=== PATIENT | female | born 1990 | race American Indian/Alaskan Native ===

== ENCOUNTER 2016-12-05 21:15 | Emergency (ER) | payer MEDICAID, OTHER ==
[2016-12-05 21:15] VITALS: BMI 34.3
[2016-12-05 21:23] VITALS: BP 106/52; PULSE 92; RESP 18; TEMP 98.9; O2SAT 100
--- NOTE | 2016-12-05 21:48 | ED PDOC ---
HPI: General Adult Time Seen by Provider: 12/05/16 21:25 Chief Complaint (Nursing): GI Problem Chief Complaint (Provider): nausea, lightheaded, headache History Per: Patient Additional Complaint(s): 26 year old female with no past medical history presents to emergency department with lightheadedness and headache that started while she was at work earlier today. 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 Patient went home and took Advil this afternoon due to lower back pain. Patient became nauseous after this and still has headache so she came to ED. She states lightheadness has since resolved. Patient rates current headache as a 5 out of 10. She states that she gets headaches from time to time and states this is not the worst headache of her life. She has mild nausea but has not vomited. She states since nausea began several hours ago she has been able to tolerate juice and candy without further emesis. She denies fever or chills, denies any chest pain, shortness of breath or dyspnea on exertion, no dizziness or vision changes. Past Medical History Reviewed: Historical Data, Nursing Documentation, Vital Signs Vital Signs: Last Vital Signs Temp 98.9 F 12/05/16 21:19 Pulse 92 H 12/05/16 21:19 Resp 18 12/05/16 21:19 BP 106/52 L 12/05/16 21:19 Pulse Ox 100 12/05/16 22:09 - Medical History Other PMH: PCOS - Surgical History Surgical History: No Surg Hx - Family History Family History: States: No Known Family Hx - Living Arrangements Living Arrangements: With Family - Social History Current smoker - smoking cessation education provided: Yes Alcohol: None Drugs: Denies - Home Medications Home Medications: Ambulatory Orders Medication Instructions Recorded No Known Home Med 03/06/16 - Allergies Allergies/Adverse Reactions: Allergies Allergy/AdvReac Type Severity Reaction Status Date / Time No Known Allergies Allergy Verified 03/06/16 19:15 Review of Systems ROS Statement: Except As Marked, All Systems Reviewed And Found Negative Constitutional: Negative for: Fever, Chills, Weakness Cardiovascular: Positive for: Light Headedness. Negative for: Chest Pain Respiratory: Negative for: Cough Gastrointestinal: Positive for: Nausea. Negative for: Vomiting, Abdominal Pain , Diarrhea Neurological: Positive for: Headache. Negative for: Weakness, Numbness, Incoordination, Change in Speech, Confusion, Seizures, Altered Mental Status, Dizziness Physical Exam - Reviewed Nursing Documentation Reviewed: Yes Vital Signs Reviewed: Yes - Physical Exam Appears: Positive for: Well, Non-toxic, No Acute Distress Head Exam: Positive for: ATRAUMATIC, NORMAL INSPECTION Skin: Negative for: Rash Eye Exam: Positive for: Normal appearance Cardiovascular/Chest: Positive for: Regular Rate, Rhythm Respiratory: Positive for: Normal Breath Sounds Gastrointestinal/Abdominal: Positive for: Soft. Negative for: Tenderness, Distended, Guarding Extremity: Positive for: Normal ROM. Negative for: Pedal Edema Neurologic/Psych: Positive for: Alert, institute scientist II-XII (Grossly intact), Oriented, Gait (Steady). Negative for: Motor/Sensory Deficits, Aphasia, Facial Droop - Laboratory Results Result Diagrams: 12/05/16 22:46 12/05/16 22:46 Urine POC: Negative Urine dip results: Negative for: Leukocyte Esterase, Blood, Nitrate, Ketones, Glucose, Bilirubin, Protein - ECG Interpretation Of ECG: NSR 90 bpm, no acute finding, reviewed by PA and ED attending O2 Sat by Pulse Oximetry: 100 Pulse Ox Interpretation: Normal Medical Decision Making Medical Decision Makin26 year old with nausea and headache Plan: EKG CBC MP Trop Urine test Urine dip IV fluids IV zofran PO tylenol IV toradol Patient is aware of all diagnostic testing results, all questions answered. She states headache, nausea and lightheadness have resolved. Patient was instructed to drink plenty of fluids and take NSAIDs as needed for headache pain. She was advised to follow-up with her primary doctor or with clinic in 2- 3 days. Disposition - Clinical Impression Clinical Impression: Headache, Nausea - Patient ED Disposition Is Patient to be Admitted: No Counseled Patient/Family Regarding: Studies Performed, Diagnosis, Need For Followup - Disposition Referrals: [facility] [Outside] Disposition: Routine/Home Disposition Time: 23:54 Condition: STABLE Additional Instructions: Motrin or Tylenol for pain as needed. Drink plenty of fluids. Follow-up with primary doctor or clinic in 2-3 days. Instructions: General Headache (ED) Forms: [employer] (Romansh) Results - Lab Results Lab Results: 12/05/16 12/05/16 22:46 22:46 WBC 8.2 RBC 4.17 Hgb 11.6 L Hct 36.0 MCV 86.3 MCH 27.8 MCHC 32.2 L RDW 12.7 Plt Count 285 MPV 7.4 Neut % (Auto) 60.5 Lymph % (Auto) 28.6 Cotton % (Auto) 6.6 Eos % (Auto) 3.3 Baso % (Auto) 1.0 Neut # 4.9 Lymph # 2.3 Cotton # 0.5 Eos # 0.3 Baso # 0.1 Sodium 139 Potassium 3.5 L Chloride 107 Carbon Dioxide 19 L Anion Gap 17 BUN 16 Creatinine 0.5 L Est GFR ( Amer) > 60 Est GFR (Non-Af Amer) > 60 Random Glucose 115 H Calcium 9.4 Total Bilirubin 0.3 AST 19 ALT 22 Alkaline Phosphatase 63 Troponin I < 0.0120 Total Protein 7.5 Albumin 4.3 Globulin 3.3 Albumin/Globulin Ratio 1.3
[2016-12-05] MEDS ORDERED: Sodium Chloride 0.9% 1,000 ML IV STA (21:51)
[2016-12-05 22:49] LABS: BASO # 0.1 K/uL (0.0-0.2); EOS # 0.3 K/uL (0.0-0.7); EOS % 3.3 % (0.0-4.0); LYMPH # 2.3 K/uL (1.0-4.3); LYMPH % 28.6 % (20.0-40.0); MEAN CELL VOLUME 86.3 fl (81.0-99.0); MEAN CORPUSCULAR HEMOGLOBIN 27.8 pg (27.0-31.0); MEAN CORPUSCULAR HGB CONC 32.2 g/dL (33.0-37.0); MEAN PLATELET VOLUME 7.4 fl (7.2-11.7); MONO # 0.5 K/uL (0.0-0.8); MONO % 6.6 % (0.0-10.0); NEUT # 4.9 K/uL (1.8-7.0); NEUT % 60.5 % (50.0-75.0); NRBC % 0.1 % (0.0-0.0); RED CELL DISTRIBUTION WIDTH 12.7 % (11.5-14.5); WHITE BLOOD COUNT 8.2 K/uL (4.8-10.8)
[2016-12-05 22:57] LABS: ALB/GLOB RATIO 1.3 (1.0-2.1); ALKALINE PHOSPHATASE 63 U/L (38-126); ALT/SGPT 22 U/L (9-52); AST/SGOT 19 U/L (14-36); BILIRUBIN,TOTAL 0.3 mg/dl (0.2-1.3); BLOOD UREA NITROGEN 16 mg/dl (7-17); CALCIUM 9.4 mg/dL (8.4-10.2); CARBON DIOXIDE 19 mmol/L (22-30); CHLORIDE 107 mmol/L (98-107); GFR AFRICAN-AMERICAN > 60; GLUCOSE,RANDOM 115 mg/dL (65-105); POTASSIUM 3.5 MMOL/L (3.6-5.0); SODIUM 139 mmol/l (132-148); TOTAL PROTEIN 7.5 G/DL (6.3-8.2)
--- NOTE | 2016-12-06 09:24 | CARD ---
APPROVED REPORT EKG Measurement Heart [id number] 150P26 [id number] <Conclusion> Normal sinus rhythm Normal ECG
== END 2016-12-06 00:01 | disposition home or self-care (01) ==
LOC: H.ER 21:15
DX: R51 Headache (principal); R11.0 Nausea; E28.2 Polycystic ovarian syndrome
CPT/HCPCS: 80053; 81025; 84484; 85025; 93005; 99281; J1885; J2405; J7040

== ENCOUNTER 2018-01-26 15:15 | Emergency (ER) | payer MEDICAID, OTHER ==
[2018-01-26 15:15] VITALS: BMI 34.3
--- NOTE | 2018-01-26 16:11 | ED PDOC ---
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 Patient states pain is worse when lifting arm away from body. She reports that stretched her arm a bit yesterday and that it felt better but pain got worse over night, prompting her to come to the ED. Patient states that she also experiences intermittent chest pain and back pain for x6 months. She reports that the chest pain is at night and can be described as sometimes sharp and stabbing. Patient has reported to have not seen a doctor about this and she denies numbness or weakness. PMD: Rene Chan Past Medical History Reviewed: Historical Data, Nursing Documentation, Vital Signs Vital Signs: Last Vital Signs Temp 98.5 F 01/26/18 15:21 Pulse 93 H 01/26/18 15:21 Resp 18 01/26/18 15:21 BP 118/76 01/26/18 15:21 Pulse Ox 99 01/26/18 15:21 - Medical History PMH: HTN Denies: Chronic Kidney Disease - Surgical History Surgical History: No Surg Hx - Family History Family History: States: Hypertension - Social History Current smoker - smoking cessation education provided: Yes Alcohol: Occasional - Home Medications Home Medications: Ambulatory Orders Medication Instructions Recorded Ibuprofen [Motrin Tab] 600 mg PO Q8 PRN #60 tab 01/26/18 Omeprazole Magnesium [Prilosec Otc] 20 mg PO DAILY #30 tcp 01/26/18 - Allergies Allergies/Adverse Reactions: Allergies Allergy/AdvReac Type Severity Reaction Status Date / Time No Known Allergies Allergy Verified 01/26/18 15:21 Review of Systems ROS Statement: Except As Marked, All Systems Reviewed And Found Negative Cardiovascular: Positive for: Chest Pain Musculoskeletal: Positive for: Shoulder Pain (left ), Arm Pain (left elbow pain), Back Pain Physical Exam - Reviewed Nursing Documentation Reviewed: Yes Vital Signs Reviewed: Yes - Physical Exam Appears: Positive for: In Acute Distress (mild painful distress) Head Exam: Positive for: ATRAUMATIC, NORMOCEPHALIC Skin: Positive for: Warm, Dry Eye Exam: Positive for: EOMI, PERRL Neck: Positive for: Painless ROM, Supple Cardiovascular/Chest: Positive for: Regular Rate, Rhythm, Chest Non Tender (no TTP on chest ). Negative for: Murmur Respiratory: Positive for: Normal Breath Sounds (clear to auscultation). Nega tive for: Wheezing, Respiratory Distress Back: Positive for: Normal Inspection. Negative for: Vertebral Tenderness Extremity: Positive for: Tenderness (TTP at the lateral elbow; left shoulder non tender ), Other ( able to flex and extend elbow: 5/5 strength; pain elicited shoulder abduction). Negative for: Deformity, Swelling Lymphatic: Negative for: Adenopathy Neurologic/Psych: Positive for: Alert, Oriented (x3). Negative for: Motor/Sensory Deficits - ECG ECG Rhythm: Positive for: Normal QRS, Normal ST Segment, Sinus Rhythm (normal ) Rate: 90 O2 Sat by Pulse Oximetry: 99 (RA) Pulse Ox Interpretation: Normal Medical Decision Making Medical Decision Making: Initial Time: 15:46 Initial plan: --EKG --Drug screen --ED urine --ED urine dipstick --Chest X-ray --Left elbow x-ray Time: 17:25 Chest X-ray show no acute findings. Elbow X-ray shows no fracture or dislocation. Patient is stable for discharge Scribe Attestation: Documented by Nitin Martinez, acting as a scribe for Loree Vale MD Provider Scribe Attestation: All medical record entries made by the Scribe were at my direction and personally dictated by me. I have reviewed the chart and agree that the record accurately reflects my personal performance of the history, physical exam, medical decision making, and the department course for this patient. I have also personally directed, reviewed, and agree with the discharge instructions and disposition. Disposition - Clinical Impression Clinical Impression: Lateral epicondylitis (tennis elbow), Chest pain Counseled Patient/Family Regarding: Studies Performed, Diagnosis, Need For Followup, Rx Given - Disposition Referrals: Rene Chan MD [Staff Provider] - (FOLLOW UP WITH DR CHAN BY WEDNESDAY FOR REEVALUATION) Disposition: Routine/Home Disposition Time: 17:00 Condition: STABLE Prescriptions: Ibuprofen [Motrin Tab] 600 mg PO Q8 PRN #60 tab PRN Reason: Pain, Moderate (4-7) Omeprazole Magnesium [Prilosec Otc] 20 mg PO DAILY #30 tcp Instructions: Chest Pain That Is Not Caused by the Heart (DC), Lateral Epicondylitis (DC) Forms: [facility] ED School/Work Excuse
--- NOTE | 2018-01-26 17:33 | RAD ---
HISTORY: chest pain COMPARISON: Images from chest x-ray performed 03/16/11 TECHNIQUE: Chest PA and lateral FINDINGS: Examination limited by habitus. LUNGS: No focal consolidation. Please note that chest x-ray has limited sensitivity for the detection of pulmonary masses. PLEURA: No significant pleural effusion identified. No definite pneumothorax . CARDIOVASCULAR: Heart size appears within normal limits. No atherosclerotic calcification present. OSSEOUS STRUCTURES: No acute osseous abnormality identified. VISUALIZED UPPER ABDOMEN: Unremarkable. OTHER FINDINGS: None. IMPRESSION: No focal consolidation, significant pleural effusion, or definite pneumothorax identified.
--- NOTE | 2018-01-26 17:35 | RAD ---
PROCEDURE: Radiographs of the left elbow. HISTORY: LEFT elbow pain COMPARISON: No prior. FINDINGS: BONES: No acute displaced fracture. JOINTS: No dislocation. SOFT TISSUES: Unremarkable. No evidence of radiopaque foreign body. JOINT EFFUSION: No significant joint effusion. OTHER FINDINGS: None IMPRESSION: No acute displaced fracture, dislocation, or significant joint effusion identified. If symptoms persist, or if there is continued clinical concern, x-ray follow-up in 7-10 days should be considered.
[2018-01-26 19:22] VITALS: BP 138/74; PULSE 79; RESP 19; TEMP 98.7; O2SAT 100
--- NOTE | 2018-01-27 11:35 | CARD ---
APPROVED REPORT Date of service: 01/26/2018 EKG Measurement Heart [id number] [id number] <Conclusion> Normal sinus rhythm Normal ECG
== END 2018-01-26 17:45 | disposition home or self-care (01) ==
LOC: H.ER 15:15
DX: R07.89 Other chest pain (principal); M77.12 Lateral epicondylitis, left elbow

== ENCOUNTER 2018-02-16 21:13 | Emergency (ER) | payer MEDICAID ==
[2018-02-16 21:13] VITALS: BMI 34.3
[2018-02-16 21:32] VITALS: RESP 18
[2018-02-16] MEDS ORDERED: Sodium Chloride 0.9% 1,000 ML IV STA (22:09)
[2018-02-16 22:34] LABS: BASO # 0.1 K/uL (0.0-0.2); BASO % 0.8 % (0.0-2.0); EOS # 0.2 K/uL (0.0-0.7); EOS % 3.5 % (0.0-4.0); HEMOGLOBIN 12.6 g/dL (12.0-16.0); LYMPH # 1.4 K/uL (1.0-4.3); LYMPH % 20.9 % (20.0-40.0); MEAN CELL VOLUME 86.1 fl (81.0-99.0); MEAN CORPUSCULAR HEMOGLOBIN 27.8 pg (27.0-31.0); MEAN CORPUSCULAR HGB CONC 32.2 g/dL (33.0-37.0); MEAN PLATELET VOLUME 7.4 fl (7.2-11.7); MONO # 0.6 K/uL (0.0-0.8); MONO % 9.1 % (0.0-10.0); NEUT # 4.3 K/uL (1.8-7.0); NEUT % 65.7 % (50.0-75.0); NRBC % 0.1 % (0.0-0.0); RBC 4.52 Mil/uL (3.80-5.20); WHITE BLOOD COUNT 6.6 K/uL (4.8-10.8)
--- NOTE | 2018-02-16 22:34 | ED PDOC ---
HPI: Abdomen Time Seen by Provider: 02/16/18 21:43 Chief Complaint (Nursing): Dizziness/Lightheaded Chief Complaint (Provider): Abdominal Pain History Per: Patient History/Exam Limitations: no limitations Onset/Duration Of Symptoms: Hrs (x6) Current Symptoms Are (Timing): Still Present Additional Complaint(s): 27 y/o female with a PMHx of borderline HTN, obesity and gastritis for evaluation of abdominal pain, onset six hours ago. Patient reports of taking 2 600 mg tablets of Ibuprofen for abdominal pain at onset of pain. Patient was originally prescribed ibuprofen for tennis elbow. Patient reports after taking medications, her abdominal pain worsened followed by non-bloody, non-bilious vomiting. Denies fever, cough, shortness of breath and chest pain. PMD: Rene Howard Past Medical History Reviewed: Historical Data, Nursing Documentation, Vital Signs Vital Signs: Last Vital Signs Temp 98.2 F 02/16/18 21:28 Pulse 89 02/16/18 21:28 Resp 18 02/16/18 21:28 BP 126/81 02/16/18 21:28 Pulse Ox 99 02/16/18 21:28 - Medical History PMH: Gastritis, HTN Denies: Chronic Kidney Disease - Surgical History Surgical History: No Surg Hx - Family History Family History: States: Hypertension - Social History Alcohol: None Drugs: Denies - Home Medications Home Medications: Ambulatory Orders Medication Instructions Recorded Omeprazole Magnesium [Prilosec Otc] 20 mg PO DAILY #30 tcp 01/26/18 RX: Ibuprofen [Motrin Tab] 600 mg PO Q8 PRN #60 tab 01/26/18 - Allergies Allergies/Adverse Reactions: Allergies Allergy/AdvReac Type Severity Reaction Status Date / Time No Known Allergies Allergy Verified 01/26/18 15:21 Review of Systems ROS Statement: Except As Marked, All Systems Reviewed And Found Negative Constitutional: Negative for: Fever Cardiovascular: Negative for: Chest Pain Respiratory: Negative for: Cough, Shortness of Breath Gastrointestinal: Positive for: Vomiting, Abdominal Pain Physical Exam - Reviewed Nursing Documentation Reviewed: Yes Vital Signs Reviewed: Yes - Physical Exam Appears: Positive for: No Acute Distress (but obese) Head Exam: Positive for: ATRAUMATIC, NORMOCEPHALIC Skin: Positive for: Normal Color, Warm, Dry Eye Exam: Positive for: Normal appearance, EOMI, PERRL Neck: Positive for: Normal, Painless ROM Cardiovascular/Chest: Positive for: Regular Rate, Rhythm. Negative for: Murmur Respiratory: Positive for: Normal Breath Sounds. Negative for: Respiratory Distress Gastrointestinal/Abdominal: Positive for: Tenderness (Epigastric tenderness) Back: Positive for: Normal Inspection. Negative for: L CVA Tenderness, R CVA Tenderness, Vertebral Tenderness Extremity: Positive for: Normal ROM. Negative for: Pedal Edema, Deformity Neurologic/Psych: Positive for: Alert, Oriented. Negative for: Motor/Sensory Deficits - Laboratory Results Result Diagrams: 02/16/18 22:24 02/16/18 22:24 - ECG O2 Sat by Pulse Oximetry: 99 (RA) Pulse Ox Interpretation: Normal Medical Decision Making Medical Decision Making: Time: 2223 Impression: 27 y/o female with epigastric pain insetting of gastritis Plan: -- CMP -- Lipase -- Urine -- ED Urine Dipstick -- CBC with Differentials -- Sodium Chloride 0.9% IV 1000 mls/hr -- Pepcid 20 mg IV -- Zofran Inj 4 mg IV -- Heplock Insertion -- Urinalysis -- Gallbladder and Pancreas US 0123 US Findings: The liver is normal in size measuring 15.4 cm. Increased hepatic echogenicity suggestive of hepatic steatosis. Nondilated common bile duct measuring 5.3 mm. Limited visualization of the pancreas secondary to gaseous bowel distention. Normal gallbladder wall thickness measuring 1.4 mm. No evidence of cholelithiasis. Unremarkable right kidney measuring 10.5x5.7x5.4 cm. Nonaneurysmal aorta measuring 1.4 cm. Unremarkable IVC. Impression: Hepatic steatosis. Limited visualization of the pancreas secondary to gaseous bowel distention. No evidence of cholelithiasis or acute cholecystitis. 0130 Patient reports symptoms have resolved over her ED stay. Patient stable for discharge with diagnosis of gastritis. Scribe Attestation: Documented by Nathaly Mejia, acting as a scribe for Thony Smith MD. Provider Scribe Attestation: All medical record entries made by the Scribe were at my direction and personally dictated by me. I have reviewed the chart and agree that the record accurately reflects my personal performance of the history, physical exam, medical decision making, and the department course for this patient. I have also personally directed, reviewed, and agree with the discharge instructions and disposition. Disposition - Clinical Impression Clinical Impression: Gastritis - Disposition Disposition: Routine/Home Disposition Time: 01:30 Condition: STABLE Instructions: Gastritis Forms: [facility] (Luxembourgish)
[2018-02-16 22:39] LABS: ALB/GLOB RATIO 1.1 (1.0-2.1); ALBUMIN 4.2 g/dL (3.5-5.0); ALT/SGPT 20 U/L (9-52); AST/SGOT 30 U/L (14-36); BLOOD UREA NITROGEN 10 mg/dl (7-17); CALCIUM 9.1 mg/dL (8.4-10.2); GFR NON-AFRICAN AMERICAN > 60; LIPASE 106 U/L (23-300)
[2018-02-16 22:49] LABS: SQUAMOUS EPITHIAL 15 /hpf (0-5); URINE BACTERIA RARE (<OCC); URINE BILIRUBIN NEGATIVE (NEGATIVE); URINE BLOOD MODERATE (NEGATIVE); URINE CLARITY CLOUDY (Clear); URINE COLOR YELLOW (YELLOW); URINE GLUCOSE (UA) NEG (Normal); URINE LEUKOCYTE ESTERASE MOD Leu/uL (Negative); URINE PROTEIN 30 mg/dL (NEGATIVE); URINE UROBILINOGEN 0.2-1.0 mg/dL (0.2-1.0)
[2018-02-17 01:40] VITALS: BP 103/61; PULSE 75; TEMP 98.1
--- NOTE | 2018-02-17 11:39 | US ---
Date of service: 02/17/2018 HISTORY: abd pain COMPARISON: Comparison is made with the previous CT dated 08/22/2013 TECHNIQUE: Sonographic evaluation of the right upper quadrant of the abdomen. FINDINGS: LIVER: Measures 15.7 cm in length. Mild heterogeneous increased echogenicity of the liver parenchyma. No mass. No intrahepatic bile duct dilatation. GALLBLADDER: Unremarkable. No gallstones. COMMON BILE DUCT: Measures 5.3 mm. No stones. No dilatation. PANCREAS: The pancreas is partially obscured by overlying bowel gas. RIGHT KIDNEY: Measures 10.5 x 5.7 x 5.4 cm in length. Normal echogenicity. No calculus, mass, or hydronephrosis. AORTA: No aneurysmal dilatation. IVC: Unremarkable. OTHER FINDINGS: None . IMPRESSION: Mildly echogenic liver suggestive of fibrofatty infiltrate. No evidence of cholelithiasis or cholecystitis. The pancreas is obscured by overlying bowel gas. Preliminary report was submitted by [facility] Radiology contains concordant findings.
[2018-02-19 21:34] VITALS: O2SAT 99
== END 2018-02-17 01:35 | disposition home or self-care (01) ==
LOC: H.ER 21:13
DX: K29.70 Gastritis, unspecified, without bleeding (principal); I10 Essential (primary) hypertension
CPT/HCPCS: 76705; 80053; 81003; 81025; 83690; 85025; 96360; 99285; J2405; J7030

== ENCOUNTER 2018-06-14 04:50 | Emergency (ER) | payer MEDICAID ==
[2018-06-14 04:50] VITALS: BMI 34.3
[2018-06-14 05:07] VITALS: BP 116/76; RESP 17; TEMP 99; O2SAT 99
--- NOTE | 2018-06-14 05:42 | ED PDOC ---
HPI: Chest Pain Time Seen by Provider: 06/14/18 05:39 Chief Complaint (Nursing): Rib Injury Chief Complaint (Provider): Rib Injury History Per: Patient History/Exam Limitations: no limitations Onset/Duration Of Symptoms: Days (1-2 weeks) Additional Complaint(s): 28 y/o female presents to the ED with right sided rib pain for 1-2 weeks. Patient indicates there was no trauma but states she has been coughing and sneezing significantly with upper respiratory symptoms that have now resolved and states that is when pain began. Patient denies nausea, vomiting, diarrhea, fever, or current URI symptoms. Past Medical History Reviewed: Historical Data, Nursing Documentation, Vital Signs Vital Signs: Last Vital Signs Temp 99.0 F 06/14/18 04:59 Pulse 96 H 06/14/18 04:59 Resp 17 06/14/18 04:59 BP 116/76 06/14/18 04:59 Pulse Ox 99 06/14/18 04:59 - Medical History PMH: Gastritis, HTN Denies: Chronic Kidney Disease - Family History Family History: States: Hypertension - Home Medications Home Medications: Ambulatory Orders Medication Instructions Recorded Ibuprofen [Motrin Tab] 600 mg PO Q8 PRN #60 tab 01/26/18 Omeprazole Magnesium [Prilosec Otc] 20 mg PO DAILY #30 tcp 01/26/18 Indomethacin 1 cap PO TID #30 capsule 06/14/18 - Allergies Allergies/Adverse Reactions: Allergies Allergy/AdvReac Type Severity Reaction Status Date / Time No Known Allergies Allergy Verified 01/26/18 15:21 Review of Systems ROS Statement: Except As Marked, All Systems Reviewed And Found Negative Constitutional: Negative for: Fever Respiratory: Positive for: Cough Gastrointestinal: Negative for: Nausea, Vomiting, Diarrhea Physical Exam - Reviewed Nursing Documentation Reviewed: Yes Vital Signs Reviewed: Yes - Physical Exam Appears: Positive for: Well, Non-toxic, No Acute Distress Head Exam: Positive for: ATRAUMATIC, NORMAL INSPECTION, NORMOCEPHALIC Skin: Positive for: Normal Color, Warm, DRY Eye Exam: Positive for: EOMI, Normal appearance, PERRL ENT: Positive for: Normal ENT Inspection Neck: Positive for: Normal, Painless ROM Cardiovascular/Chest: Positive for: Regular Rate, Rhythm, Chest Non Tender ( including with palpation). Negative for: Murmur Respiratory: Positive for: Normal Breath Sounds. Negative for: Respiratory Distress Gastrointestinal/Abdominal: Positive for: Normal Exam, Soft. Negative for: Tenderness Back: Positive for: Normal Inspection Extremity: Positive for: Normal ROM. Negative for: Pedal Edema, Deformity Neurological/Psych: Positive for: Awake, Alert, Normal Tone. Negative for: Motor/Sensory Deficits - ECG ECG Rhythm: Positive for: Normal QRS, Normal ST Segment, Sinus Rhythm Rate: 84 O2 Sat by Pulse Oximetry: 99 (RA) Pulse Ox Interpretation: Normal Medical Decision Making Medical Decision Making: Time: 05:40 Impression: Costochondritis Initial Plan: * CXR * Toradol * Discharge with NSAIDs 05:56 Some anatomical landmarks difficult to discern due to body habitus. However, no fractures visualized. Scribe Attestation: Documented by Mian Magaña, acting as a scribe Saeed Reyes PA-C. Provider Scribe Attestation: All medical record entries made by the Scribe were at my direction and personally dictated by me. I have reviewed the chart and agree that the record accurately reflects my personal performance of the history, physical exam, m edical decision making, and the department course for this patient. I have also personally directed, reviewed, and agree with the discharge instructions and disposition Disposition - Clinical Impression Clinical Impression: Costochondritis - Patient ED Disposition Is Patient to be Admitted: No Counseled Patient/Family Regarding: Studies Performed, Diagnosis, Need For Followup, Rx Given - Disposition Referrals: Wing Good MD [Primary Care Provider] - Disposition: Routine/Home Disposition Time: 06:03 Condition: STABLE Prescriptions: Indomethacin 1 cap PO TID #30 capsule Instructions: Costochondritis, Costochondritis (DC) Forms: [employer] (Sinhala)
[2018-06-14 06:42] VITALS: PULSE 84
--- NOTE | 2018-06-14 09:57 | RAD ---
Date of service: 06/14/2018 PROCEDURE: Radiographs of the Chest and Right Ribs. HISTORY: RIB PAIN COMPARISON: None available. TECHNIQUE: Frontal radiograph of the chest and multiple oblique radiographs of the right ribs were obtained. 4 views obtained. FINDINGS: RIGHT RIBS: No fracture or focal lesion visualized. LUNGS: Clear. PLEURA: No pneumothorax or pleural fluid. CARDIOVASCULAR: Normal cardiac size. No pulmonary vascular congestion. No aortic atherosclerotic calcification present OTHER FINDINGS: None. IMPRESSION: Unremarkable radiographs of the chest and right ribs. No right rib fracture.
--- NOTE | 2018-06-17 14:01 | CARD ---
APPROVED REPORT Date of service: 06/14/2018 EKG Measurement Heart [id number] [id number] <Conclusion> Normal sinus rhythm Normal ECG
== END 2018-06-14 06:13 | disposition home or self-care (01) ==
LOC: H.ER 04:50
DX: M94.0 Chondrocostal junction syndrome [Tietze] (principal); I10 Essential (primary) hypertension
CPT/HCPCS: 71101; 81025; 96372; 99283; J1885